=== PATIENT | male | born 1965 | race Caucasian/White ===

== ENCOUNTER 2021-11-15 20:16 | Emergency (ER) | payer MEDICAID ==
[~2021-11-15] VITALS: Ht 172.7 cm; Wt 74.8 kg
[2021-11-15 20:20] VITALS: BP 139/92
--- NOTE | 2021-11-15 21:08 | NUR ---
patient ambulatory with assitance to bed 7
--- NOTE | 2021-11-15 21:08 | NUR ---
Patient ambulated to bed 7.
--- NOTE | 2021-11-15 21:57 | NUR ---
Dr. Colon examining patient.
[2021-11-15] MEDS ORDERED: ACETAMINOPHEN EXTRA STRENGTH 500 MG TAB PO ONE (22:00)
[2021-11-15] MEDS ORDERED: NAPR-1717 PO (22:01)
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
--- NOTE | 2021-11-15 22:30 | NUR ---
SECURITY AT BEDSIDE
[2021-11-15 22:34] VITALS: BP 139/92
--- NOTE | 2021-11-15 22:37 | NUR ---
Patient discharged with v/s stable. Written and verbal after care instructions given and explained. Patient alert, oriented and verbalized understanding of instructions. Ambulatory with steady gait. All questions addressed prior to discharge. ID band removed. Patient advised to follow up with PMD. Rx of NAPROSYN given. Patient educated on indication of medication including possible reaction and side effects. Opportunity to ask questions provided and answered. VSS, A/OX4, UNLABORED BREATHING, AMBULATORY, AND CALM DEMEANOR. FOOD AND HOMELESS PACKET PROVIDED,CLOTHING APPROPRIATE.
== END 2021-11-15 22:37 | disposition home or self-care (01) ==
LOC: MED 20:16
DX: S80.212A Abrasion, left knee, initial encounter (principal); S80.211A Abrasion, right knee, initial encounter; S20.313A Abrasion of bilateral front wall of thorax, initial encounter; V43.32XA Unspecified car occupant injured in collision with other type car in nontraffic accident, initial encounter; Y93.89 Activity, other specified; Y92.89 Other specified places as the place of occurrence of the external cause; Y99.8 Other external cause status
CPT/HCPCS: 99282